=== PATIENT | female | born 1980 ===

== ENCOUNTER 2016-11-13 20:20 | Emergency (ER) | payer OTHER ==
[2016-11-13 21:51] VITALS: RESP 18
[2016-11-13] MEDS ORDERED: Sodium Chloride 0.9% 1,000 ML IV STA (23:09)
[2016-11-13 23:28] LABS: BASO # 0.1 K/uL (0.0-0.2); BASO % 0.9 % (0.0-2.0); EOS % 0.2 % (0.0-4.0); HEMATOCRIT 38.9 % (34.0-47.0); LYMPH # 1.8 K/uL (1.0-4.3); LYMPH % 15.6 % (20.0-40.0); MEAN CELL VOLUME 89.1 fl (81.0-99.0); MEAN CORPUSCULAR HEMOGLOBIN 31.2 pg (27.0-31.0); MEAN CORPUSCULAR HGB CONC 35.1 g/dL (33.0-37.0); MEAN PLATELET VOLUME 9.1 fl (7.2-11.7); MONO # 0.7 K/uL (0.0-0.8); MONO % 6.3 % (0.0-10.0); NEUT # 9.1 K/uL (1.8-7.0); RED CELL DISTRIBUTION WIDTH 12.7 % (11.5-14.5); WHITE BLOOD COUNT 11.8 K/uL (4.8-10.8)
[2016-11-13 23:34] LABS: VENOUS BLOOD GAS BASE EXCESS 1.8 mmol/L (0.0-2.0); VENOUS BLOOD GAS PCO2 37 mmHg (40-60); VENOUS BLOOD PH 7.45 (7.32-7.43)
[2016-11-14 00:02] LABS: RBC URINE 2 /hpf (0-3); URINE BACTERIA MOD (<OCC); URINE BILIRUBIN NEGATIVE (NEGATIVE); URINE BLOOD NEGATIVE (NEGATIVE); URINE COLOR YELLOW (YELLOW); URINE GLUCOSE (UA) >=500 mg/dL (Normal); URINE KETONE TRACE mg/dL (NEGATIVE); URINE LEUKOCYTE ESTERASE NEG Leu/uL (Negative); URINE PROTEIN 30 mg/dL (NEGATIVE); URINE UROBILINOGEN 0.2-1.0 mg/dL (0.2-1.0); WBC URINE 6 /hpf (0-5)
[2016-11-14 00:07] LABS: ALKALINE PHOSPHATASE 77 U/L (38-126); ALT/SGPT 22 U/L (9-52); AST/SGOT 16 U/L (14-36); BILIRUBIN,TOTAL 0.6 mg/dl (0.2-1.3); BLOOD UREA NITROGEN 7 mg/dl (7-17); CALCIUM 8.9 mg/dL (8.4-10.2); CARBON DIOXIDE 22 mmol/L (22-30); CHLORIDE 100 mmol/L (98-107); GFR AFRICAN-AMERICAN > 60; GLUCOSE,RANDOM 246 mg/dL (65-105); POTASSIUM 3.4 MMOL/L (3.6-5.0); SODIUM 133 mmol/l (132-148); TOTAL PROTEIN 7.6 G/DL (6.3-8.2)
[2016-11-14] MEDS ORDERED: Potassium Chloride 20 mEq ER Tab PO ONE ×2 (00:26→02:13)
[2016-11-14] MEDS ORDERED: Sodium Chloride 0.9% 1,000 ML IV STA (00:35)
[2016-11-14 01:18] VITALS: BP 110/52; PULSE 106; TEMP 98.6; O2SAT 96
[2016-11-14] MEDS ORDERED: cefTRIAXone (Rocephin) 1 gm Inj ONE (02:13)
--- NOTE | 2016-11-14 02:27 | ED PDOC ---
HPI: Fever Fever Onset Was: 11/12/16 Symptoms Associated With Fever: denies: Vomiting, Diarrhea Past Medical History Reviewed: Historical Data, Nursing Documentation, Vital Signs Vital Signs: Last Vital Signs Temp 98.6 F 11/14/16 01:17 Pulse 106 H 11/14/16 01:17 Resp 18 11/14/16 01:17 BP 110/52 L 11/14/16 01:17 Pulse Ox 96 11/14/16 01:17 - Medical History PMH: Anxiety, Diabetes Denies: Chronic Kidney Disease - Surgical History Surgical History: No Surg Hx - Family History Family History: States: Unknown Family Hx, Diabetes - Home Medications Home Medications: Ambulatory Orders Medication Instructions Recorded Sulfamethoxazole/Trimethoprim 1 tab PO BID #20 tab 11/14/16 [Bactrim DS 800 mg-160 mg] - Allergies Allergies/Adverse Reactions: Allergies Allergy/AdvReac Type Severity Reaction Status Date / Time No Known Allergies Allergy Verified 03/14/16 00:01 Review of Systems ROS Statement: Except As Marked, All Systems Reviewed And Found Negative Constitutional: Positive for: Fever. Negative for: Chills, Sweats Gastrointestinal: Negative for: Vomiting, Diarrhea Physical Exam - Reviewed Nursing Documentation Reviewed: Yes Vital Signs Reviewed: Yes - Physical Exam Appears: Positive for: No Acute Distress Head Exam: Positive for: ATRAUMATIC, NORMAL INSPECTION, NORMOCEPHALIC Skin: Positive for: Normal Color, Warm, Dry Eye Exam: Positive for: Normal appearance, EOMI, PERRL ENT: Positive for: Normal ENT Inspection Neck: Positive for: Normal Cardiovascular/Chest: Positive for: Regular Rate, Rhythm Respiratory: Positive for: Normal Breath Sounds. Negative for: Wheezing, Respiratory Distress Gastrointestinal/Abdominal: Positive for: Normal Exam, Soft. Negative for: Tenderness Back: Positive for: L CVA Tenderness, R CVA Tenderness Extremity: Positive for: Normal ROM Neurologic/Psych: Positive for: Alert, Oriented - Laboratory Results Result Diagrams: 11/13/16 23:23 11/13/16 23:23 - ECG O2 Sat by Pulse Oximetry: 96 (RA) Pulse Ox Interpretation: Normal Medical Decision Making Medical Decision Makin: Initial Impression:Acute pyelonephritis and other sources infection Possible sepsis Initial Plan: * Venous blood gas shock panel * Comp metabolic panel * Cbc with differentials * Potassium chloride * Sodium chloride iv 1000ml * Ceftriaxone * Ketorolac toradol * Acetaminophen * Blood culture * Urine culture * urinalysis * Re-eval Scribe~Attestation: Documented by Tamara Malone acting as a~scribe~for Dr. Dione Shipman MD. ~ Provider~Scribe~Attestation: All medical record entries made by the~Tegan~were at my direction and personally dictated by me. I have reviewed the chart and agree that the record accurately reflects my personal performance of the history, physical exam, medical decision making, and the department course for this patient. I have also personally directed, reviewed, and agree with the discharge instructions and disposition. Disposition - Clinical Impression Clinical Impression: UTI (urinary tract infection), Hyperglycemia - Disposition Referrals: [facility] [place] [Outside] Condition: GOOD Additional Instructions: Take your medications as instructed. Return for worsening. Follow up with your PCP in 2-3 days. Prescriptions: Sulfamethoxazole/Trimethoprim [Bactrim DS 800 mg-160 mg] 1 tab PO BID #20 tab Instructions: Urinary Tract Infection in Women (ED) Print Language: LATVIAN
--- NOTE | 2016-11-14 02:49 | ED PDOC ---
HPI: General Adult Time Seen by Provider: 11/13/16 22:24 Chief Complaint (Nursing): Fever Chief Complaint (Provider): Fever History Per: Patient History/Exam Limitations: no limitations Onset/Duration Of Symptoms: Days (x2) Current Symptoms Are (Timing): Still Present Additional History Per: Patient Additional Complaint(s): 36 year old Lay Cuenca presents to the ED with past medical history of anxiety and diabetes and chief complaint of a fever onset x2 days. Associated symptoms include bilateral back pain w/ fever and body ache but denies vomiting , diarrhea, and respiratory distress. Patient admits to having body aches since yesterday, and goes to the clinic for primary care. Past Medical History Reviewed: Historical Data, Nursing Documentation, Vital Signs Vital Signs: Last Vital Signs Temp 98.6 F 11/14/16 01:17 Pulse 106 H 11/14/16 01:17 Resp 18 11/14/16 01:17 BP 110/52 L 11/14/16 01:17 Pulse Ox 96 11/14/16 03:11 - Medical History PMH: Anxiety, Diabetes Denies: Chronic Kidney Disease - Surgical History Surgical History: No Surg Hx - Family History Family History: States: Diabetes - Home Medications Home Medications: Ambulatory Orders Medication Instructions Recorded Sulfamethoxazole/Trimethoprim 1 tab PO BID #20 tab 11/14/16 [Bactrim DS 800 mg-160 mg] - Allergies Allergies/Adverse Reactions: Allergies Allergy/AdvReac Type Severity Reaction Status Date / Time No Known Allergies Allergy Verified 03/14/16 00:01 Review of Systems ROS Statement: Except As Marked, All Systems Reviewed And Found Negative Constitutional: Negative for: Fever, Chills Respiratory: Negative for: Wheezing Gastrointestinal: Negative for: Vomiting, Diarrhea Physical Exam - Reviewed Nursing Documentation Reviewed: Yes Vital Signs Reviewed: Yes - Physical Exam Appears: Positive for: Well, No Acute Distress Head Exam: Positive for: ATRAUMATIC, NORMAL INSPECTION, NORMOCEPHALIC Skin: Positive for: Normal Color, Warm, Dry Eye Exam: Positive for: Normal appearance, EOMI, PERRL ENT: Positive for: Normal ENT Inspection Neck: Positive for: Normal, Painless ROM, Supple Cardiovascular/Chest: Positive for: Regular Rate, Rhythm, Tachycardia Respiratory: Positive for: Normal Breath Sounds. Negative for: Wheezing, Respiratory Distress Gastrointestinal/Abdominal: Positive for: Normal Exam, Soft. Negative for: Tenderness Back: Positive for: L CVA Tenderness, R CVA Tenderness Extremity: Positive for: Normal ROM Neurologic/Psych: Positive for: Alert, Oriented - Laboratory Results Result Diagrams: 11/13/16 23:23 11/13/16 23:23 - ECG O2 Sat by Pulse Oximetry: 96 Medical Decision Making Medical Decision Makin: Initial Impression: Acute pyelonephritis and other sources infection Initial Plan: * Venous blood gas shock panel * Comp metabolic panel * Cbc with differentials * Potassium chloride * Sodium chloride IV 1000ml * Ceftriaxone * Ketorolac toradol * Acetaminophen * Blood culture * Urine culture * urinalysis Scribe~Attestation: Documented by Tamara Malone acting as a~scribe~for Dr. Dione Shipman MD. ~ Provider~Scribe~Attestation: All medical record entries made by the~Scribe~were at my direction and personally dictated by me. I have reviewed the chart and agree that the record accurately reflects my personal performance of the history, physical exam, medical decision making, and the department course for this patient. I have also personally directed, reviewed, and agree with the discharge instructions and disposition. Disposition - Clinical Impression Clinical Impression: UTI (urinary tract infection), Hyperglycemia - Patient ED Disposition Is Patient to be Admitted: No Doctor Will See Patient In The: Office Counseled Patient/Family Regarding: Studies Performed, Diagnosis, Need For Followup - Disposition Referrals: [facility] [Outside] Disposition: Routine/Home Disposition Time: 03:30 Condition: GOOD Additional Instructions: Take your medications as instructed. Return for worsening. Follow up with your PCP in 2-3 days. Prescriptions: Sulfamethoxazole/Trimethoprim [Bactrim DS 800 mg-160 mg] 1 tab PO BID #20 tab Instructions: Urinary Tract Infection in Women (ED) Forms: [facility] ED School/Work Excuse Print Language: [id number]
== END 2016-11-14 03:40 | disposition home or self-care (01) ==
LOC: H.ER 20:20
DX: N39.0 Urinary tract infection, site not specified (principal); E11.65 Type 2 diabetes mellitus with hyperglycemia; F41.9 Anxiety disorder, unspecified; R50.9 Fever, unspecified; R73.9 Hyperglycemia, unspecified